=== PATIENT | female | born 1985 | race Caucasian/White ===

== ENCOUNTER 2021-06-17 20:50 | Emergency (ER) | payer BC, MEDICAID ==
[~2021-06-17] VITALS: Ht 149.9 cm; Wt 61.2 kg
[~2021-06-17 20:50] MED LIST: NORG1TAB20 PO
[2021-06-17 21:10] VITALS: BP_SYST 113
--- NOTE | 2021-06-17 21:15 | NUR ---
PT TO [facility] FOR EVALUATION. REPORT GIVEN TO KERLINE CLARKE WHO WILL ASSUME CARE.
--- NOTE | 2021-06-17 21:16 | NUR ---
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 Vital signs stable
--- NOTE | 2021-06-17 21:35 | NUR ---
Patient transported to radiology via ambulatory in stable condition, accompanied by linen tech.
--- NOTE | 2021-06-17 22:00 | NUR ---
# 19 gauge malone needle placed to right chest nalini cath. Use of asceptic technique. Opsite placed over site. Blood return noted. Blood for lab drawn from site. Flushed with 10 cc of normal saline. No evidence of infiltration noted. Patient tolerated well.
[2021-06-17 22:39] LABS: BASOPHILS % (AUTO) 0.2 % (0.0-2.0); EOSINOPHILS # (AUTO) 0.1 K/uL (0.0-0.4); EOSINOPHILS % (AUTO) 1.4 % (0.0-4.0); HEMATOCRIT 28.1 % (36-48); HEMOGLOBIN 9.9 g/dL (12.0-16.0); LYMPHOCYTES # (AUTO) 0.3 K/uL (1.0-5.5); LYMPHOCYTES % (AUTO) 6.2 % (20.5-51.5); MEAN CORPUSCULAR HEMOGLOBIN 32 pg (27-31); MEAN CORPUSCULAR HGB CONC 35 % (32-36); MEAN CORPUSCULAR VOLUME 92 fL (79.0-98.0); MONOCYTES # (AUTO) 0.4 K/uL (0.0-1.0); MONOCYTES % (AUTO) 8.2 % (1.7-9.3); NEUTROPHILS # (AUTO) 4.2 K/uL (1.8-7.7); PLATELET COUNT (AUTO) 73 K/uL (130-430); RED BLOOD CELL COUNT(AUTO) 3.05 MIL/uL (4.2-6.2); RED CELL DISTRIBUTION WIDTH 15.1 % (9.0-15.0); WHITE BLOOD COUNT (AUTO) 4.9 K/uL (4.8-10.8)
[2021-06-17 22:48] LABS: CREATININE 0.55 mg/dL (0.55-1.30); POTASSIUM 3.2 mmol/L (3.5-5.1)
[2021-06-17 22:52] LABS: PROTHROMBIN TIME 10.7 SECS (9.5-12.5)
[2021-06-17 22:53] LABS: ALBUMIN 3.5 g/dL (3.4-4.8); TOTAL BILIRUBIN 0.6 mg/dL (0.0-1.0)
[2021-06-17] MEDS ORDERED: METOCLOPRAMIDE HCL 10 MG/2 ML VIAL ONE (23:08)
--- NOTE | 2021-06-17 23:15 | NUR ---
For reglan IV, patient refused, Dr. Barros informed
[2021-06-17] MEDS ORDERED: METO-290 PO (23:22)
--- NOTE | 2021-06-17 23:35 | NUR ---
Re-assesed by Dr. Barros, for discharge
[2021-06-17] MEDS: METOCLOPRAMIDE HCL 10 MG/2 ML VIAL IVP ONE (23:39)
[2021-06-17 23:45] VITALS: BP_SYST 110
--- NOTE | 2021-06-17 23:45 | NUR ---
Patient given written and verbal discharge instructions and verbalizes understanding. ER MD discussed with patient the results and treatment provided. Patient in stable condition. ID arm band removed.Vazquez needle aseptically removed,intact and dressing applied, no active bleeding. Rx of Metoclopramide given. Patient educated on pain management and to follow up with PMD. Pain Scale 0/10. Opportunity for questions provided and answered. Medication side effect fact sheet provided.
== END 2021-06-17 23:45 | disposition home or self-care (01) ==
LOC: SED 20:50
DX: R51.9 Headache, unspecified (principal); R11.2 Nausea with vomiting, unspecified; Z88.8 Allergy status to other drugs, medicaments and biological substances; Z79.899 Other long term (current) drug therapy
CPT/HCPCS: 36415; 70450; 71045; 76376; 80053; 84484; 85025; 85610; 85730; 99285; J2765